=== PATIENT | female | born 1945 | race Two or more races ===

== ENCOUNTER 2018-05-05 07:54 | Inpatient (IN) | payer OTHER ==
[~2018-05-05] VITALS: Ht 152.4 cm; Wt 44.5 kg
[2018-05-05] MEDS ORDERED: VASOTEC5 MG (08:08)
[2018-05-08] MEDS ORDERED: COLACE100 MG PO (12:13)
[2018-05-08] MEDS ORDERED: INTESTINEX680 M1 PO (12:13)
== END 2018-05-08 17:25 | disposition home or self-care (01) | DRG 333 ==
LOC: ER 07:54 → SURH 10:00 → SEC-K 10:00 → SURH 11:18
PROVIDERS: Surgery
PROC: 0DBP8ZX Excision of Rectum, Via Natural or Artificial Opening Endoscopic, Diagnostic (ICD-10-PCS; 2018-05-06)
PROC: BW21Y0Z Computerized Tomography (CT Scan) of Abdomen and Pelvis using Other Contrast, Unenhanced and Enhanced (ICD-10-PCS; 2018-05-06)
PROC: 0DBP4ZZ Excision of Rectum, Percutaneous Endoscopic Approach (ICD-10-PCS; principal; 2018-05-07)
PROC: 3E0T3BZ Introduction of Anesthetic Agent into Peripheral Nerves and Plexi, Percutaneous Approach (ICD-10-PCS; 2018-05-07)
DX: D12.8 Benign neoplasm of rectum (principal); K62.5 Hemorrhage of anus and rectum; I10 Essential (primary) hypertension